=== PATIENT | female | born 1965 | race Caucasian/White ===

== ENCOUNTER → 2020-10-01 | Day surgery (SDC) | payer OTHER ==
[~2020-10-01] MED LIST: AMARYL1 MG PO; AMBIEN10 MG PO; AMBIEN5 MG PO; CIPRO500 MG PO; CRESTOR10 MG PO; CRESTOR20 MG PO; ESTRADIOL1 EAC1 TD; FLAGYL500 MG PO; FLONASE 0.05% N16 GM; GLUCOPHAGE500 MG PO; LORATADINE10 MG PO; LOVAZA1 GM PO; MIRAPEX0.25 MG PO; NORCO 5-325 TA1 EACH PO; PEPCID20 MG PO; PERCOCET 5-3251 EACH PO; PHENERGAN 12.12.5 M1 PO; PROTONIX40 M1 PO; VITAMIN D21250 MCG PO; VITAMIN D250000 UNIT PO; VITAMIN D350000 UNIT PO; ZOFRAN4 MG PO; ZOFRAN8 MG PO
== END | disposition home or self-care (01) ==
LOC: OR 07:19
PROVIDERS: Internal Medicine Gastroenterology
PROC: 0DJD8ZZ Inspection of Lower Intestinal Tract, Via Natural or Artificial Opening Endoscopic (ICD-10-PCS; principal; 2020-10-01 10:00)
PROC: 0DB38ZX Excision of Lower Esophagus, Via Natural or Artificial Opening Endoscopic, Diagnostic (ICD-10-PCS; principal; 2020-10-01 10:00)
PROC: 0DB78ZX Excision of Stomach, Pylorus, Via Natural or Artificial Opening Endoscopic, Diagnostic (ICD-10-PCS; principal; 2020-10-01 10:00)
PROC: 0DB58ZX Excision of Esophagus, Via Natural or Artificial Opening Endoscopic, Diagnostic (ICD-10-PCS; principal; 2020-10-01 10:00)
PROC: 0DB48ZX Excision of Esophagogastric Junction, Via Natural or Artificial Opening Endoscopic, Diagnostic (ICD-10-PCS; principal; 2020-10-01 10:00)
PROC: 0DB68ZX Excision of Stomach, Via Natural or Artificial Opening Endoscopic, Diagnostic (ICD-10-PCS; principal; 2020-10-01 10:00)
DX: Z12.11 Encounter for screening for malignant neoplasm of colon (principal); K31.9 Disease of stomach and duodenum, unspecified; K29.50 Unspecified chronic gastritis without bleeding; K57.30 Diverticulosis of large intestine without perforation or abscess without bleeding; K64.1 Second degree hemorrhoids; K22.8 Other specified diseases of esophagus; K21.00 Gastro-esophageal reflux disease with esophagitis, without bleeding; E78.5 Hyperlipidemia, unspecified; E78.00 Pure hypercholesterolemia, unspecified; E66.01 Morbid (severe) obesity due to excess calories; Z68.42 Body mass index [BMI] 45.0-49.9, adult; Z88.5 Allergy status to narcotic agent; Z79.899 Other long term (current) drug therapy; Z98.84 Bariatric surgery status
CPT/HCPCS: J2704; J7040

== ENCOUNTER 2020-11-28 14:50 | Emergency (ER) | payer OTHER ==
[~2020-11-28 14:50] MED LIST changes: -PHENERGAN 12.12.5 M1 PO
[2020-11-28] MEDS ORDERED: PHENERGAN 12.12.5 M1 PO (16:50)
[2020-11-28 17:04] LABS: RED BLOOD COUNT 5.7 M/UL (4.00-5.10); WHITE BLOOD COUNT 8.3 K/UL (4.5-11.0)
[2020-11-28 17:14] LABS: BUN/CREATININE RATIO 19 (0-10)
== END 2020-11-28 17:05 | disposition home or self-care (01) ==
LOC: ER1 14:50
PROVIDERS: Preventive Medicine Occupational Medicine
DX: G43.909 Migraine, unspecified, not intractable, without status migrainosus (principal); Z88.5 Allergy status to narcotic agent
CPT/HCPCS: 80048; 85025; 96374; 96375; 99284; J1200; J2550; J2765

== ENCOUNTER → 2021-09-26 | Outpatient (CLI) | payer OTHER ==
[~2021-09-26] MED LIST changes: +PHENERGAN 12.12.5 M1 PO
== END ==
LOC: EXRD 09:08
DX: K76.0 Fatty (change of) liver, not elsewhere classified (principal)
CPT/HCPCS: 76700

== ENCOUNTER 2022-03-11 09:15 | Observation (INO) | payer OTHER ==
[~2022-03-11] VITALS: Ht 149.9 cm; Wt 102.1 kg
[2022-03-11 10:11] LABS: HEMOGLOBIN 15.1 gm/dl (12.3-15.3); RED BLOOD COUNT 5.34 M/UL (4.00-5.10); WHITE BLOOD COUNT 6.3 K/UL (4.5-11.0)
[2022-03-11 10:35] LABS: BUN/CREATININE RATIO 15 (0-10)
[2022-03-11] MEDS ORDERED: OZEMPIC1 MG/0.71 SQ (15:17)
[2022-03-11] MEDS ORDERED: LEVEMIR FL100 UNIT/1 SQ (15:17)
[2022-03-11] MEDS ORDERED: PROPRANOLOL HCL10 MG PO (15:20)
[2022-03-11] MEDS ORDERED: RIZATRIPTAN10 M1 PO (15:21)
[2022-03-12 07:16] LABS: HEMOGLOBIN 13.6 gm/dl (12.3-15.3); RED BLOOD COUNT 4.83 M/UL (4.00-5.10); WHITE BLOOD COUNT 5.8 K/UL (4.5-11.0)
[2022-03-12 07:38] LABS: BUN/CREATININE RATIO 13 (0-10)
[2022-03-13] MEDS ORDERED: ISOSORBIDE MONO60 MG PO (09:05)
[2022-03-13] MEDS ORDERED: ASPIRIN EC81 MG PO (09:05)
== END 2022-03-13 11:23 | disposition home or self-care (01) ==
LOC: ER1 09:15 → M/S 12:27 → CDU 12:27 → M/S 19:38
PROVIDERS: Physician Assistant; ADMIT Internal Medicine
DX: R07.89 Other chest pain (principal); E11.9 Type 2 diabetes mellitus without complications; E78.5 Hyperlipidemia, unspecified; G43.909 Migraine, unspecified, not intractable, without status migrainosus; I10 Essential (primary) hypertension; K21.9 Gastro-esophageal reflux disease without esophagitis; E66.9 Obesity, unspecified; K43.9 Ventral hernia without obstruction or gangrene; Z68.42 Body mass index [BMI] 45.0-49.9, adult; Z79.4 Long term (current) use of insulin; Z79.84 Long term (current) use of oral hypoglycemic drugs; Z79.51 Long term (current) use of inhaled steroids; Z79.899 Other long term (current) drug therapy; Z88.5 Allergy status to narcotic agent
CPT/HCPCS: ECHO; 36415; 71045; 78452; 80048; 80053; 80061; 82550; 82553; 82607; 83036; 83690; 84439; 84443; 84484; 85025; 85379; 85610; 93005; 93017; 93306; 96374; 96375; 96376; 99285; A9502; C9113; G0378; J2405; J2785